=== PATIENT | female | born 1950 | race African-American/Black ===

== ENCOUNTER 2022-08-15 11:32 | Emergency (ER) | payer OTHER, MEDICAID ==
[2022-08-15 12:22] LABS: #Eosinphils 0.2 thou/uL (0.0-0.7); #Lymphocytes 1.5 thou/uL (1.20-3.40); #Monocytes 0.3 thou/uL (0.11-0.59); #Neutrophils 2.2 thou/uL (1.40-6.50); %Basophils 0.4 % (0.0-1.0); %Eosinophils 4.9 % (0.0-10.0); %Lymphocytes 35.9 % (21.0-51.0); %Monocytes 6.6 % (0.0-10.0); %Neutrophils 52.2 % (42.0-75.0); Hemoglobin 12.6 g/dL (12.0-16.0); Mean Corpuscular HGB CONC 29.5 g/dL (32.0-36.0); Mean Platelet Volume 9.3 fL (7.4-10.4); Platelet Count 263 10x3/uL (130-400); RBC Distribution Width 17.6 % (11.5-14.5); Red Blood Cell (RBC) Count 3.83 mill/uL (4.20-5.40); White Blood Cell (WBC) Count 4.2 10x3/uL (4.8-10.8)
[2022-08-15 12:38] LABS: Hypochromia SLIGHT = 6-15 cells (100X) (0-5/hpf); MDiff Complete? YES; Macrocytosis MODERATE=16-30 cells (100X) (0-5/hpf); Platelet Morphology Comment Appears Adequate; Polychromasia SLIGHT = 2-3 cells (100X) (0-2/hpf); Stomatocytes SLIGHT = 2-5 cells (100X) (0-1/hpf)
[2022-08-15 12:45] LABS: ALT (SGPT) 18 U/L (8-55); AST (SGOT) 29 U/L (5-34); Albumin 4.3 g/dL (3.4-4.8); Alkaline Phosphatase 133 U/L (40-110); Anion Gap 15 mmol/L (10-20); BUN (Urea Nitrogen) 33 mg/dL (9.8-20.1); Bilirubin, Total 0.6 mg/dL (0.2-1.2); Calc. Creatinine Clearance 0 mL/min (70-130); Calcium 8.6 mg/dL (7.8-10.44); Carbon Dioxide 26 mmol/L (23-31); Estimated GFR 8; Globulin 3.5 g/dL (2.4-3.5); Glucose 90 mg/dL (80-115); Potassium 5.1 mmol/L (3.5-5.1); Protein, Total 7.8 g/dL (5.8-8.1); Sodium 141 mmol/L (136-145)
[2022-08-15 13:03] LABS: Chloride 105 mmol/L (98-107)
== END 2022-08-15 15:09 | disposition home or self-care (01) ==
LOC: ERS 11:32
DX: S09.90XA Unspecified injury of head, initial encounter (principal); S00.11XA Contusion of right eyelid and periocular area, initial encounter; E11.9 Type 2 diabetes mellitus without complications; E78.5 Hyperlipidemia, unspecified; I10 Essential (primary) hypertension; W01.0XXA Fall on same level from slipping, tripping and stumbling without subsequent striking against object, initial encounter
CPT/HCPCS: 36415; 70450; 80053; 84484; 85025; 93005; 94760

== ENCOUNTER 2023-07-27 18:23 | Emergency (ER) | payer MEDICAID, OTHER | END 2023-07-27 21:13 | disposition home or self-care (01) | LOC: ERS 18:23 | DX: S00.83XA Contusion of other part of head, initial encounter (principal); S80.211A Abrasion, right knee, initial encounter; E11.9 Type 2 diabetes mellitus without complications; I10 Essential (primary) hypertension; E78.5 Hyperlipidemia, unspecified; Z79.82 Long term (current) use of aspirin; Z79.899 Other long term (current) drug therapy; W18.30XA Fall on same level, unspecified, initial encounter | CPT/HCPCS: 70450; 72125 ==

== ENCOUNTER 2024-02-04 10:20 | Inpatient (IN) | payer OTHER, MEDICAID ==
[2024-02-04 12:00] LABS: Base Excess -1.3 mEq/L (-2.0 to +3.0); Calcium, Ionized (venous) 1.26 mmol/L (1.16-1.32); Chloride (VBG) 105 mmol/L (98-106); Hematocrit-VBG 37 % (36.0-47.0); Hemoglobin (Hb) 12.5 g/dL (11.7-16.1); Potassium (VBG) 5.16 mmol/L (3.70-5.30); Sodium 141 mmol/L (133-146); pH (venous) 7.334 (7.32-7.43)
[2024-02-04 12:02] LABS: Mean Corpuscular HGB CONC 29.6 g/dL (32.0-36.0)
[2024-02-04 12:09] LABS: Acetaminophen Less than 10 mcg/mL (10.0-30.0); Alcohol Less than 10.0 mg/dL (Less than 10); Magnesium 2.2 mg/dL (1.6-2.6); Salicylate Less than 8.0 mg/dL (15.0-30.0)
[2024-02-04 12:10] LABS: ALT (SGPT) 13 U/L (8-55); AST (SGOT) 24 U/L (5-34); Albumin 3.9 g/dL (3.4-4.8); Alkaline Phosphatase 72 U/L (40-110); Anion Gap 14 mmol/L (10-20); BUN (Urea Nitrogen) 22 mg/dL (9.8-20.1); Bilirubin, Total 0.8 mg/dL (0.2-1.2); CK (CPK) 323 U/L (29-168); Calc. Creatinine Clearance 0 mL/min (70-130); Calcium 10.1 mg/dL (7.8-10.44); Carbon Dioxide 25 mmol/L (23-31); Chloride 107 mmol/L (98-107); Estimated GFR 7; Globulin 3.3 g/dL (2.4-3.5); Glucose 93 mg/dL (83-110); Potassium 4.9 mmol/L (3.5-5.1); Protein, Total 7.2 g/dL (5.8-8.1); Sodium 141 mmol/L (136-145)
[2024-02-04 12:12] LABS: INR-International Normal Ratio 0.9; Prothrombin Time 12.3 sec (12.0-14.7)
[2024-02-04 12:13] LABS: PTT 24.6 sec (22.9-36.1)
[2024-02-04 12:45] LABS: Troponin I 0.013 ng/mL (< 0.028)
[2024-02-04 12:59] LABS: Macrocytosis MODERATE=16-30 cells HPF (0-5); Platelet Adequacy Comment Platelets Normal; Polychromasia SLIGHT = 2-3 cells HPF (0-2)
[2024-02-04 13:01] LABS: #Basophils 0.05 10x3/uL (0.0-0.2); %Eosinophils 3.3 % (0.0-10.0); %Lymphocytes 21.3 % (21.0-51.0); %Monocytes 4.1 % (0.0-10.0); %Neutrophils 69.9 % (42.0-75.0); Hematocrit 40.2 % (36.0-47.0); Hemoglobin 11.9 g/dL (12.0-16.0); Mean Corpuscular Hemoglobin 33.5 pg (27.0-31.0); Mean Corpuscular Volume 113.2 fL (78.0-98.0); Platelet Count 187 10x3/uL (130-400); RBC Distribution Width 13.8 % (11.5-14.5); Red Blood Cell (RBC) Count 3.55 mill/uL (4.20-5.40)
[2024-02-04 15:13] LABS: Bilirubin Negative (Negative); Blood, Urine 1+ (Negative); CAUTI Indications for Culture Alt mental st,lethar; Clarity Clear (Clear); Glucose, Urine (Dipstick) Normal (Negative); Ketone, Urine Negative (Negative); Leukocyte 250 Leu/uL (Negative); Nitrite Negative (Negative); Protein, Urine (Dipstick) 200 mg/dL (Neg-Trace); RBC/HPF 0-3 HPF (0-3); Specific Gravity, Urine 1.007 (1.002-1.036); Urobilinogen Normal mg/dL (Less than 2); WBC/HPF 21-50 HPF (0-3)
[2024-02-04 15:17] LABS: Amphetamine Not Detected (NotDetected); Barbiturates Screen Not Detected (NotDetected); Benzodiazepine Screen Not Detected (NotDetected); Cocaine Metabolite Screen Not Detected (NotDetected); Methadone Not Detected (NotDetected); Methamphetamine Not Detected (NotDetected); Opiate Screen Not Detected (NotDetected); Oxycodone Screen Not Detected (NotDetected); Phencyclidine (PCP) Not Detected (NotDetected); THC/Cannabinoid Screen Not Detected (NotDetected); Tricyclic Screen Not Detected (NotDetected)
[2024-02-04 15:25] LABS: Squamous Epithelial 0-3 HPF (0-3); Transitional Epithelial 0-3 HPF (None Seen)
[2024-02-04 15:26] LABS: Bacteria/HPF 1+ HPF (None Seen)
[2024-02-04 15:27] LABS: Urine Culture Reflex Yes Yes
[2024-02-04] MEDS ORDERED: Insulin Regular 300 UNITS/3 ML VIAL SC PRN (15:30)
[2024-02-04] MEDS ORDERED: Glucagon 1 MG/ML KIT IM PRN (15:30)
[2024-02-04] MEDS ORDERED: Dextrose 50% Abboject 50 ML SYRINGE SLOW IVP PRN (15:30)
[2024-02-04] MEDS ORDERED: Dextrose 5% in Water 1,000 ML IV PRN (15:30)
[2024-02-04 17:45] LABS: Hep C Index 0.09 S/CO (0-0.79)
[2024-02-04 17:50] LABS: HBsAg Index 0.46 S/CO (0-0.99); Hep B Core Total Ab NONREACTIVE (NonReactive); Hep B Surf AB REACTIVE (NonReactive); Hep B Surf Ag NONREACTIVE S/CO (NonReactive); Hep C IgG Ab NONREACTIVE S/CO (NonReactive)
[2024-02-04 18:19] LABS: HBSAB Concentration 3498.27 mIU/mL
[2024-02-04] MEDS ORDERED: Famotidine 20 MG TAB PO SCH (21:00)
[2024-02-04] MEDS: cefTRIAXone\\ROCEPHIN 1 GM in Sodium Chloride 0.9% 100 ML IVPB SCH (23:02)
[2024-02-04] MEDS: Heparin 5,000 UNITS/ML VIAL SC SCH (23:02)
[2024-02-04] MEDS: Famotidine 20 MG TAB PO SCH (23:10)
[2024-02-04] MEDS: Sodium Chloride 0.9% 500 ML IV SCH (23:31)
[2024-02-04 23:46] VITALS: BMI 23.3
[2024-02-04 23:52] LABS: Anion Gap 20 mmol/L (10-20); BUN (Urea Nitrogen) 9 mg/dL (9.8-20.1); Calc. Creatinine Clearance 16 mL/min (70-130); Calcium 10.2 mg/dL (7.8-10.44); Carbon Dioxide 24 mmol/L (23-31); Chloride 98 mmol/L (98-107); Estimated GFR 16; Glucose 104 mg/dL (83-110); Magnesium 1.9 mg/dL (1.6-2.6); Potassium 3.9 mmol/L (3.5-5.1); Sodium 138 mmol/L (136-145)
[2024-02-04] MEDS: Lorazepam 2 MG/ML VIAL SLOW IVP SCH (23:57)
[2024-02-05] MEDS: levETIRAcetam 500 MG (5 mL) VIAL SLOW IVP SCH ×3 (00:48→20:33)
[2024-02-05] MEDS: hydrALAZINE 20 MG/ML VIAL SLOW IVP SCH (01:14)
[2024-02-05] MEDS: Aspirin 300 MG Suppository PR SCH (01:24)
[2024-02-05 03:49] LABS: Actual Bicarbonate (HCO3v) 30.8 mEq/L (22-28); Base Excess 4.6 mEq/L (-2.0 to +3.0); Chloride (VBG) 98 mmol/L (98-106); Hematocrit-VBG 40 % (36.0-47.0); Hemoglobin (Hb) 13.7 g/dL (11.7-16.1); Potassium (VBG) 4.59 mmol/L (3.70-5.30); Sodium 140 mmol/L (133-146); pH (venous) 7.391 (7.32-7.43)
[2024-02-05 03:51] LABS: #Basophils 0.03 10x3/uL (0.0-0.2); #Eosinphils Less than 0.03 10x3/uL (0.0-0.7); %Basophils 0.5 % (0.0-1.0); %Eosinophils 0.2 % (0.0-10.0); %Lymphocytes 15.8 % (21.0-51.0); %Neutrophils 79.3 % (42.0-75.0); Hematocrit 42.4 % (36.0-47.0); Hemoglobin 13.2 g/dL (12.0-16.0); Mean Corpuscular HGB CONC 31.1 g/dL (32.0-36.0); Mean Corpuscular Hemoglobin 32.9 pg (27.0-31.0); Mean Corpuscular Volume 105.7 fL (78.0-98.0); Mean Platelet Volume 12.9 fL (7.4-10.4); Platelet Count 204 10x3/uL (130-400); RBC Distribution Width 13.8 % (11.5-14.5); Red Blood Cell (RBC) Count 4.01 mill/uL (4.20-5.40)
[2024-02-05 04:19] LABS: Lactic Acid 2.7 mmol/L (0.5-2.2)
[2024-02-05 04:25] LABS: ALT (SGPT) 14 U/L (8-55); AST (SGOT) 29 U/L (5-34); Albumin 4.1 g/dL (3.4-4.8); Alkaline Phosphatase 87 U/L (40-110); Anion Gap 20 mmol/L (10-20); BUN (Urea Nitrogen) 10 mg/dL (9.8-20.1); Bilirubin, Total 0.9 mg/dL (0.2-1.2); Calc. Creatinine Clearance 13 mL/min (70-130); Calcium 10.1 mg/dL (7.8-10.44); Carbon Dioxide 24 mmol/L (23-31); Cardiac Risk 2.1 (Less than 4.5); Chloride 99 mmol/L (98-107); Cholesterol 139 mg/dl (< 200 Desired); Estimated GFR 13; Globulin 3.9 g/dL (2.4-3.5); Glucose 109 mg/dL (83-110); HDL Cholesterol 66 mg/dL (>60 Neg Risk); LDL Cholesterol, Calculated 57 mg/dL; Potassium 4.6 mmol/L (3.5-5.1); Sodium 138 mmol/L (136-145); Triglycerides 81 mg/dL (Less than 150)
[2024-02-05] MEDS: Sodium Chloride 0.9% 500 ML IV SCH (04:34)
[2024-02-05] MEDS: Acetaminophen 650 MG Suppository PR PRN (04:39)
[2024-02-05] MEDS: Cefepime 1 GM in Sodium Chloride 0.9% 100 ML IVPB SCH (05:18)
[2024-02-05] MEDS: Sodium Chloride 0.9% 1,000 ML IV SCH (05:19)
[2024-02-05] MEDS: Levothyroxine Sodium 112 MCG TAB PO SCH (05:56)
[2024-02-05] MEDS: Vancomycin (BATCH) 1.25 GM in Premix 1 BAG IVPB SCH (06:20)
[2024-02-05] MEDS: Acetaminophen 325 MG Suppository PR SCH (06:24)
[2024-02-05] MEDS: Ketorolac Tromethamine 30 MG (1 mL) VIAL IVP SCH (06:37)
[2024-02-05] MEDS ORDERED: AMPicillin 2 GM in Sodium Chloride 0.9% 100 ML IVPB SCH (06:45)
[2024-02-05 06:58] LABS: Actual Bicarbonate (HCO3a) 27.2 mEq/L (22-28); Base Excess (BEa) 3.8 mEq/L (-2.0 to +3.0); CO2 Tension 36.9 mmHg (35.0-45.0); Calcium, Ionized (arterial) 1.11 mmol/L (1.12-1.30); Carboxyhemoglobin (COHb) 0.6 gm% (0.0-3.0); Hematocrit-ABG 37 % (36.0-47.0); Hemoglobin (Hb) 12.6 g/dL (12.0-16.0); Potassium - ABG Lab 4.86 mmol/L (3.70-5.30); pH, Arterial 7.486 (7.35-7.45)
[2024-02-05] MEDS ORDERED: Bictegrav/Emtricit/Tenofov Ala 1 TAB Tab PO SCH (09:00)
[2024-02-05] MEDS ORDERED: Enoxaparin 30 MG (0.3 mL) SYRINGE SC SCH (09:00)
[2024-02-05] MEDS ORDERED: levETIRAcetam 500 MG TAB PO SCH (09:00)
[2024-02-05] MEDS: Ampicillin 2 GM in Sodium Chloride 0.9% 100 ML IVPB SCH (09:44)
[2024-02-05] MEDS ORDERED: Sodium Bicarbonate 2.5 MEQ/5 ML SDV ONE ×2 (10:44→12:37)
[2024-02-05 11:42] LABS: Strep pneumo Urine Ag NEGATIVE (NEGATIVE)
[2024-02-05] MEDS: Acyclovir Sodium 500 mg (10 mL) Vial IVPB SCH (13:20)
[2024-02-05 13:41] LABS: Color Of CSF Supernatant COLORLESS (Colorless); Tube # 2; Unspun CSF Color COLORLESS (Colorless)
[2024-02-05 13:53] LABS: CSF Source CSF; Clarity Clear (Clear); Tube # 4
[2024-02-05 13:57] LABS: CSF, Glucose 67 mg/dl (40-70); CSF, Protein 110.1 mg/dL (15-40)
[2024-02-05] MEDS: SODIUM CHLORIDE 0.9% IVPB SCH (16:59)
[2024-02-05] MEDS: ACYCLOVIR SODIUM IVPB SCH (16:59)
[2024-02-05] MEDS ORDERED: Vancomycin Hemodialysis Sliding Scale FS SCH (17:00)
[2024-02-05] MEDS: Dextrose 5 % And 0.9 % NaCl 1,000 ML IV SCH (17:19)
[2024-02-05] MEDS: cefTRIAXone\\ROCEPHIN 2 GM in Sodium Chloride 0.9% 100 ML IVPB SCH (20:15)
[2024-02-05] MEDS: Heparin 5,000 UNITS/ML VIAL SC SCH (20:40)
[2024-02-05] MEDS ORDERED: cefTRIAXone\\ROCEPHIN 2 GM in Sodium Chloride 0.9% 100 ML IVPB SCH (21:00)
[2024-02-06] MEDS ORDERED: Cefepime 0.5 GM in Sodium Chloride 0.9% 100 ML IVPB SCH (04:00)
[2024-02-06 07:35] LABS: Vancomycin, Trough 23.2 ug/mL
[2024-02-06] MEDS ORDERED: Heparin 10,000 UNITS/ 10 ML VIAL ONE (09:30)
[2024-02-06 11:38] LABS: Syphilis Antibody Nonreactive (Nonreactive); Syphilis Antibody Index 0.07 S/CO (<1.00 Non-Reactive)
[2024-02-06 14:37] LABS: %CD4 (Helper/Inducer) 18.9 % (30.8-58.5); Absolute CD4 208 /uL (359-1519); Lymphocytes/Gated Cell Count 1.1 x10E3/uL (0.7-3.1); Total Lymphocyte 16 % (Not Estab.); WBC Total Count 6.6 x10E3/uL (3.4-10.8)
[2024-02-07 03:41] LABS: #Basophils 0.08 10x3/uL (0.0-0.2); %Basophils 1.2 % (0.0-1.0); %Eosinophils 5.8 % (0.0-10.0); %Lymphocytes 23.3 % (21.0-51.0); %Monocytes 5.3 % (0.0-10.0); %Neutrophils 64.1 % (42.0-75.0); Hematocrit 36.1 % (36.0-47.0); Hemoglobin 10.9 g/dL (12.0-16.0); Mean Corpuscular HGB CONC 30.2 g/dL (32.0-36.0); Mean Corpuscular Volume 105.9 fL (78.0-98.0); Platelet Count 198 10x3/uL (130-400); RBC Distribution Width 13.6 % (11.5-14.5); Red Blood Cell (RBC) Count 3.41 mill/uL (4.20-5.40)
[2024-02-07 03:53] LABS: Anion Gap 15 mmol/L (10-20); BUN (Urea Nitrogen) 13 mg/dL (9.8-20.1); Calc. Creatinine Clearance 14 mL/min (70-130); Calcium 9.2 mg/dL (7.8-10.44); Carbon Dioxide 25 mmol/L (23-31); Chloride 103 mmol/L (98-107); Estimated GFR 13; Glucose 111 mg/dL (83-110); Potassium 3.9 mmol/L (3.5-5.1); Sodium 139 mmol/L (136-145)
[2024-02-07 05:42] LABS: HSV 1 - DNA, CSF Negative (Negative); HSV 2 - DNA, CSF Negative (Negative)
[2024-02-07] MEDS: hydrALAZINE 20 MG/ML VIAL SLOW IVP PRN (15:25)
[2024-02-07] MEDS: Labetalol HCl 100 MG/20 ML VIAL SLOW IVP PRN (23:54)
[2024-02-08] MEDS: Acetaminophen 325 MG TAB PO PRN (16:05)
[2024-02-08] MEDS: Metoprolol Tartrate 25 MG TAB PO SCH (20:25)
[2024-02-09 09:11] LABS: #Basophils 0.14 10x3/uL (0.0-0.2); %Basophils 1.7 % (0.0-1.0); %Eosinophils 9.2 % (0.0-10.0); %Lymphocytes 14.3 % (21.0-51.0); %Monocytes 4.1 % (0.0-10.0); %Neutrophils 70.2 % (42.0-75.0); Hematocrit 38.5 % (36.0-47.0); Hemoglobin 11.5 g/dL (12.0-16.0); Mean Corpuscular HGB CONC 29.9 g/dL (32.0-36.0); Mean Corpuscular Hemoglobin 32.6 pg (27.0-31.0); Mean Corpuscular Volume 109.1 fL (78.0-98.0); Mean Platelet Volume 11.9 fL (7.4-10.4); Platelet Count 233 10x3/uL (130-400); Red Blood Cell (RBC) Count 3.53 mill/uL (4.20-5.40)
[2024-02-09 09:31] LABS: Anion Gap 17 mmol/L (10-20); BUN (Urea Nitrogen) 22 mg/dL (9.8-20.1); Calc. Creatinine Clearance 9 mL/min (70-130); Carbon Dioxide 19 mmol/L (23-31); Chloride 112 mmol/L (98-107); Estimated GFR 7; Glucose 141 mg/dL (83-110); Magnesium 1.8 mg/dL (1.6-2.6); Potassium 3.8 mmol/L (3.5-5.1); Sodium 144 mmol/L (136-145)
[2024-02-09] MEDS ORDERED: Heparin 10,000 UNITS/ 10 ML VIAL ONE (09:35)
[2024-02-09] MEDS: Metoprolol Tartrate 5 MG (5 mL) VIAL IVP SCH (14:26)
[2024-02-09] MEDS: Aspirin Chewable 81 MG TAB PO SCH (14:30)
[2024-02-09] MEDS: levETIRAcetam 500 mg/5 ml Oral Solution PO SCH (21:58)
[2024-02-10 14:51] VITALS: BMI 27.3
[2024-02-10] MEDS ORDERED: Bictegrav/Emtricit/Tenofov Ala 1 TAB Tab PO SCH (17:00)
[2024-02-10] MEDS: Metoprolol Tartrate 25 MG TAB PO SCH (20:46)
[2024-02-10 23:08] LABS: HIV-1 Quantitative, RNA PCR <20 copies/mL (.)
[2024-02-11] MEDS ORDERED: Heparin 10,000 UNITS/ 10 ML VIAL ONE (08:57)
[2024-02-11] MEDS ORDERED: hydrALAZINE 20 MG/ML VIAL SLOW IVP PRN (13:34)
[2024-02-11] MEDS: cloNIDine 0.2 MG TAB PO SCH (15:37)
[2024-02-11 18:24] LABS: Hematocrit 34.3 % (36.0-47.0); Hemoglobin 10.2 g/dL (12.0-16.0)
[2024-02-11] MEDS ORDERED: cloNIDine 0.2 MG TAB PO SCH (21:00)
[2024-02-12 04:27] LABS: #Basophils 0.05 10x3/uL (0.0-0.2); %Basophils 0.9 % (0.0-1.0); %Lymphocytes 34.6 % (21.0-51.0); %Monocytes 8.8 % (0.0-10.0); %Neutrophils 48.3 % (42.0-75.0); Hematocrit 30.9 % (36.0-47.0); Hemoglobin 9.1 g/dL (12.0-16.0); Mean Corpuscular HGB CONC 29.4 g/dL (32.0-36.0); Mean Corpuscular Hemoglobin 32.7 pg (27.0-31.0); Mean Corpuscular Volume 111.2 fL (78.0-98.0); Mean Platelet Volume 12.9 fL (7.4-10.4); Platelet Count 194 10x3/uL (130-400); RBC Distribution Width 13.8 % (11.5-14.5); Red Blood Cell (RBC) Count 2.78 mill/uL (4.20-5.40)
[2024-02-12 04:49] LABS: Anion Gap 14 mmol/L (10-20); BUN (Urea Nitrogen) 15 mg/dL (9.8-20.1); Calc. Creatinine Clearance 16 mL/min (70-130); Calcium 9.1 mg/dL (7.8-10.44); Carbon Dioxide 27 mmol/L (23-31); Chloride 99 mmol/L (98-107); Estimated GFR 13; Glucose 88 mg/dL (83-110); Potassium 3.8 mmol/L (3.5-5.1); Sodium 136 mmol/L (136-145)
[2024-02-12 05:00] LABS: Hypochromia SLIGHT = 6-15 cells HPF (0-5); Macrocytosis SLIGHT = 6-15 cells HPF (0-5); Platelet Adequacy Comment Platelets Normal
[2024-02-12 12:17] VITALS: BP 175/73; TEMP 98
== END 2024-02-12 15:06 | DRG 871 ==
LOC: ERS 10:20 → ERHOLD 15:02 → 2NO 20:58 → OBSVTOIN 02-05 06:57 → CCU 02-05 08:01 → 2SE 02-06 12:41 → UNDODISIN 02-10 16:46
PROVIDERS: ADMIT Internal Medicine; ATTEND Internal Medicine
PROC: 3E03329 Introduction of Other Anti-infective into Peripheral Vein, Percutaneous Approach (ICD-10-PCS; 2024-02-04)
PROC: 009U3ZX Drainage of Spinal Canal, Percutaneous Approach, Diagnostic (ICD-10-PCS; principal; 2024-02-05)
PROC: B01B1ZZ Fluoroscopy of Spinal Cord using Low Osmolar Contrast (ICD-10-PCS; 2024-02-05)
PROC: 06HY33Z Insertion of Infusion Device into Lower Vein, Percutaneous Approach (ICD-10-PCS; 2024-02-05)
PROC: 3E03329 Introduction of Other Anti-infective into Peripheral Vein, Percutaneous Approach (ICD-10-PCS; 2024-02-05)
PROC: 4A033R1 Measurement of Arterial Saturation, Peripheral, Percutaneous Approach (ICD-10-PCS; 2024-02-05)
PROC: 4A00X4Z Measurement of Central Nervous Electrical Activity, External Approach (ICD-10-PCS; 2024-02-09)
DX: A41.9 Sepsis, unspecified organism (principal); G92.8 Other toxic encephalopathy; N18.6 End stage renal disease; I42.9 Cardiomyopathy, unspecified; I12.0 Hypertensive chronic kidney disease with stage 5 chronic kidney disease or end stage renal disease; N39.0 Urinary tract infection, site not specified; G40.909 Epilepsy, unspecified, not intractable, without status epilepticus; E11.22 Type 2 diabetes mellitus with diabetic chronic kidney disease; K57.30 Diverticulosis of large intestine without perforation or abscess without bleeding; G47.33 Obstructive sleep apnea (adult) (pediatric); R25.1 Tremor, unspecified; N32.89 Other specified disorders of bladder; W18.30XA Fall on same level, unspecified, initial encounter; Z21 Asymptomatic human immunodeficiency virus [HIV] infection status; Z98.891 History of uterine scar from previous surgery; Z90.710 Acquired absence of both cervix and uterus; Z90.89 Acquired absence of other organs; Z99.2 Dependence on renal dialysis
CPT/HCPCS: 36415; 36416; 62270; 70450; 70551; 71045; 72125; 74176; 80048; 80053; 80061; 80202; 80306; 80307; 81001; 82140; 82550; 82805; 82945; 83605; 83735; 83880; 84145; 84146; 84157; 84443; 84484; 85014; 85018; 85025; 85610; 85730; 86361; 86592; 86704; 86706; 86780; 86803; 87040; 87070; 87077; 87086; 87186; 87205; 87340; 87449; 87529; 87536; 87633; 87798; 87899; 89051; 90935; 90945; 93005; 93010; 95700; 95711; 95819; 96372; 96374; 96375; G0257; G0378; J0133; J0290; J0360; J0692; J0696; J1644; J1885; J1953; J2060; J3370; J3490; J7030; J7042; J7050